=== PATIENT | male | born 1950 | race Caucasian/White ===

== ENCOUNTER → 2017-01-29 | Outpatient (POV) | LOC: OUTPT 00:01 | PROVIDERS: ATTEND Otolaryngology | DX: H90.2 Conductive hearing loss, unspecified (principal) ==

== ENCOUNTER → 2017-02-18 | Outpatient (POV) | LOC: OUTPT 00:01 | PROVIDERS: ATTEND Otolaryngology | DX: Z96.22 Myringotomy tube(s) status (principal) | CPT/HCPCS: 92553 ==